=== PATIENT | female | born 1970 | race African-American/Black ===

== ENCOUNTER 2016-12-07 15:18 | Emergency (ER) | payer OTHER ==
[2016-12-07 15:40] VITALS: TEMP 98.2; BMI 27.1
--- NOTE | 2016-12-07 16:27 | PDOC ---
History of Present Illness - History of Present Illness Initial Comments: 12/07/16 16:51 The patient is a 45 year old female with history of HIV CD4 greater 1100, undetectable VL, who presents to the ED complaining of approximately 2 weeks of right lower extremity swelling and paresthesias from the right hip to the right foot with diffuse pain in the right knee. She states she was started on antibiotics a few weeks ago for an abscess in her right groin with resolution of her abscess. She called her PCP about her swelling and paresthesias who sent the patient to the ED to rule out DVT. The patient denies any chest pain or shortness of breath. She denies fever, chills, or diaphoresis. She denies nausea , vomiting, or diarrhea. She denies cigarette smoking, oral contraceptives or devices, or long periods of immobilization. PCP: Dr. Arpita Hadley <Génesis Marshall - Last Filed: 12/07/16 19:38> - General History Source: Patient, Old Records Exam Limitations: No Limitations <James Castro - Last Filed: 12/07/16 19:43> - General Chief Complaint: CVA/TIA Stated Complaint: NUMBNESS IN LEG Time Seen by Provider: 12/07/16 16:08 Past History <Génesis Marshall - Last Filed: 12/07/16 19:38> - Past Medical History Anemia: No Asthma: No Cancer: No Cardiac Disorders: No CVA: No COPD: No CHF: No Dementia: No Diabetes: No GI Disorders: No Disorders: No HTN: No Hypercholesterolemia: No HIV: Yes Liver Disease: No Seizures: No Thyroid Disease: No - Surgical History Gastric Stapling: Yes (colon resection) - Psycho/Social/Smoking Cessation Hx Anxiety: No Suicidal Ideation: No Smoking History: Former smoker Have you smoked in the past 12 months: Yes Number of Cigarettes Smoked Daily: 1 If you are a former smoker, when did you quit?: WEEK BEFORE SURGERY Cigars Per Day: 0 Information on smoking cessation initiated: No Hx Alcohol Use: No Drug/Substance Use Hx: No Substance Use Type: None Hx Substance Use Treatment: No <Jmaes Castro - Last Filed: 12/07/16 19:43> - Past Medical History Allergies/Adverse Reactions: Allergies Allergy/AdvReac Type Severity Reaction Status Date / Time venlafaxine HCl Allergy Intermediate Verified 12/07/16 15:40 [From Effexor XR] Home Medications: Ambulatory Orders Emtricitab/Rilpiviri/Tenof Ala [Odefsey Tablet] 1 each PO DAILY 12/07/16 Review of Systems - Review of Systems Able to Perform ROS?: Yes Comments:: 12/07/16 17:08 GENERAL/CONSTITUTIONAL: No fever or chills. No weakness. HEAD, EYES, EARS, NOSE AND THROAT: No change in vision. No ear pain or discharge. No sore throat CARDIOVASCULAR: No chest pain or shortness of breath. RESPIRATORY: No cough, wheezing, or hemoptysis. GASTROINTESTINAL: No nausea, vomiting, diarrhea or constipation. GENITOURINARY: No dysuria, frequency, or change in urination. MUSCULOSKELETAL: Right lower extremity swelling. Diffuse right knee pain. No neck or back pain. SKIN: Right groin abscess (resolved). No rash NEUROLOGIC: RLE paresthesias. No headache, vertigo, loss of consciousness, or change in strength. ENDOCRINE: No increased thirst. No abnormal weight change. HEMATOLOGIC/LYMPHATIC: No anemia, easy bleeding, or history of blood clots. ALLERGIC/IMMUNOLOGIC: No hives or skin allergy. <Génesis Marshall - Last Filed: 12/07/16 19:38> *Physical Exam - Vital Signs Last Vital Signs Temp Pulse Resp BP Pulse Ox 98.2 F 61 18 109/78 99 12/07/16 15:34 12/07/16 15:34 12/07/16 15:34 12/07/16 15:34 12/07/16 15:34 - Physical Exam Comments: 12/07/16 17:10 GENERAL: Awake, alert, and fully oriented, in no acute distress HEAD: No signs of trauma EYES: PERRLA, EOMI, sclera anicteric, conjunctiva clear ENT: Auricles normal inspection, hearing grossly normal, nares patent, oropharynx clear without exudates. Moist mucosa NECK: Normal ROM, supple, no lymphadenopathy, JVD, or masses LUNGS: Breath sounds equal, clear to auscultation bilaterally. No wheezes, and no crackles HEART: Regular rate and rhythm, normal S1 and S2, no murmurs, rubs or gallops ABDOMEN: Soft, nontender, normoactive bowel sounds. No guarding, no rebound. No masses EXTREMITIES: RLE: Numbness throughout the RLE. Tenderness to palpation of the posterior aspect of the knee. Unilateral nonpitting edema. All other extremities: Normal range of motion, no edema. No clubbing or cyanosis. No cords, erythema, or tenderness NEUROLOGICAL: Cranial nerves II through XII grossly intact. Normal speech, normal gait SKIN: Warm, Dry, normal turgor, no rashes or lesions noted. <Génesis Marshall - Last Filed: 12/07/16 19:38> - Vital Signs Last Vital Signs Temp Pulse Resp BP Pulse Ox 98.2 F 61 18 109/78 99 12/07/16 15:34 12/07/16 15:34 12/07/16 15:34 12/07/16 15:34 12/07/16 15:34 <James Castro - Last Filed: 12/07/16 19:43> ED Treatment Course - RADIOLOGY Radiology Studies Ordered: 12/07/16 19:38 US of the right lower extremity, reviewed and interpreted by [facility]. FINDINGS: The deep veins of the right lower extremity are compressible, patent and augment normally. No evidence of deep vein thrombosis Hypoechoic collection in the popliteal fossa measuring 2.5 x 0.9 x 1.7 cm compatible with a Mathis's cyst THIS DOCUMENT HAS BEEN ELECTRONICALLY SIGNED Adiel Terry MD 12/07/2016 19:27 EST <Génesis Marshall - Last Filed: 12/07/16 19:38> - RADIOLOGY Radiology Studies Ordered: Category Date Time Status DUPLEX VASCUL US-1 LEG [US] Stat Ultrasound 12/07/16 16:18 Ordered <James Castro - Last Filed: 12/07/16 19:43> Medical Decision Making - Medical Decision Making 12/07/16 16:19 A portion of this note was written by my scribe, under my supervision. Vital Signs Temp Pulse Resp BP Pulse Ox 98.2 F 61 18 109/78 99 12/07/16 15:34 12/07/16 15:34 12/07/16 15:34 12/07/16 15:34 12/07/16 15:34 45 yo F c/ hx HIV CD4 greater 1100, undetectable VL p/w R leg tingling and swelling. Reported symptoms persisted for two weeks and pt noted pain in the right posterior knee. Denies injuries. Reports parasthesias diffuse RLE. 2+ radial pulse. Pt reached out to her primary care office (as noted in documents here), and pt was sent to ER. The patient will need r/o DVT, mathis cyst. Will obtain dopplers and reassess. 12/07/16 19:41 Ultrasound reviewed. Mathis's cyst. Will have patient follow up with orthopedics. I discussed the physical exam findings, ancillary test results and final diagnoses with the patient. I answered all of the patient's questions. The patient was satisfied with the care received and felt comfortable with the discharge plan and treatment plan. The patient will call their primary care physician within 24 hours to arrange follow-up and will return to the Emergency Department with any new, persistant or worsening symptoms. <James Castro - Last Filed: 12/07/16 19:43> *DC/Admit/Observation/Transfer - Attestations Scribe Attestion: 12/07/16 17:12 Documentation prepared by Génesis Marshall, acting as biomedical equipment tech for James Castro MD. <Génesis Marshall - Last Filed: 12/07/16 19:38> - Discharge Dispostion Admit: No <James Castro - Last Filed: 12/07/16 19:43> Diagnosis at time of Disposition: Bakers cyst Qualifiers: Laterality: right Qualified Code(s): M71.21 - Synovial cyst of popliteal space [Mathis], right knee - Discharge Dispostion Disposition: HOME Condition at time of disposition: Stable - Referrals Referrals: Arpita Hadley NP [Primary Care Provider] - Jamie Muñoz MD [Staff Physician] - North Preciado MD [Staff Physician] - - Patient Instructions Printed Discharge Instructions: DI for Mathis's Cyst Additional Instructions: Please follow up with your doctor. Make an appointment with an orthopedist if the symptoms are persistent.
[2016-12-07 20:05] VITALS: BP 112/69; PULSE 62
== END 2016-12-07 20:03 | disposition home or self-care (01) ==
LOC: JER 15:18 → SUPCPDRO 15:18 → JER 20:03
DX: M71.21 Synovial cyst of popliteal space [Baker], right knee (principal); Z21 Asymptomatic human immunodeficiency virus [HIV] infection status; Z87.891 Personal history of nicotine dependence
CPT/HCPCS: 93971-TC; 99284-25

== ENCOUNTER 2017-04-11 12:06 | Emergency (ER) | payer OTHER ==
[2017-04-11 12:13] VITALS: BP 121/72; PULSE 88; TEMP 98.3; BMI 26.0
--- NOTE | 2017-04-11 14:16 | PDOC ---
History of Present Illness - General Chief Complaint: Abscess Boil Stated Complaint: ABSCESS ON GROIN AREA (PCP SENT) Time Seen by Provider: 04/11/17 12:49 - History of Present Illness Initial Comments: 04/11/17 14:13 Patient is a 46 year old female with a history of HIV who presents with a right groin abscess. She states that the abscess has been bothering her for over 2 months, however she avoided going to the ED because she was afraid of getting it drained. She has attempted two courses of antibiotics without resolution of the abscess as per her primary care provider. She was being seen by her primary care provider again for the abscess today and was sent to the ED for evaluation. She denies any fevers, chills, or drainage from the abscess. Past History - Past Medical History Allergies/Adverse Reactions: Allergies Allergy/AdvReac Type Severity Reaction Status Date / Time venlafaxine HCl Allergy Intermediate Verified 04/11/17 12:08 [From Effexor XR] Home Medications: Ambulatory Orders Emtricitab/Rilpiviri/Tenof Ala [Odefsey Tablet] 1 each PO DAILY #30 tab Anemia: No Asthma: No Cancer: No Cardiac Disorders: No CVA: No COPD: No CHF: No Dementia: No Diabetes: No GI Disorders: No Disorders: No HTN: No Hypercholesterolemia: No HIV: Yes Liver Disease: No Seizures: No Thyroid Disease: No - Surgical History Gastric Stapling: Yes (colon resection) - Immunization History Immunization Up to Date: Yes - Psycho/Social/Smoking Cessation Hx Anxiety: No Suicidal Ideation: No Smoking History: Never smoked Have you smoked in the past 12 months: Yes Number of Cigarettes Smoked Daily: 1 If you are a former smoker, when did you quit?: WEEK BEFORE SURGERY Cigars Per Day: 0 Information on smoking cessation initiated: No Hx Alcohol Use: No Drug/Substance Use Hx: No Substance Use Type: None Hx Substance Use Treatment: No Review of Systems - Review of Systems Constitutional: No: Chills, Fever Respiratory: No: Cough, Shortness of Breath Cardiac (ROS): No: Chest Pain, Lightheadedness, Palpitations ABD/GI: No: Constipated, Diarrhea, Nausea, Vomiting : No: Dysuria Integumentary: No: Rash Neurological: No: Headache, Numbness, Tingling, Weakness *Physical Exam - Vital Signs Last Vital Signs Temp Pulse Resp BP Pulse Ox 98.3 F 88 18 121/72 98 04/11/17 12:09 04/11/17 12:09 04/11/17 12:09 04/11/17 12:09 04/11/17 12:09 - Physical Exam Comments: 04/11/17 14:43 General Appearance: Nourished. No Apparent Distress HEENT: No Pharyngeal Erythema, Tonsillar Exudate, Tonsillar Erythema Respiratory/Chest: Lungs Clear, Normal Breath Sounds. No Crackles, Rales, Rhonchi, Wheezing Cardiovascular: Regular Rhythm, Regular Rate. No Murmur, Gallop/S3, Gallop/S4 Gastrointestinal/Abdominal: Normal Bowel Sounds, Soft. No Guarding, Rebound, Tenderness Extremity: Normal Capillary Refill, 1cm x 1cm fluctuant mass in the right inguinal region Integumentary: Normal Color, Dry, Warm Neurologic: Fully Oriented, Alert, Normal Mood/Affect, Normal Response Procedures - Incision and Drainage I&D Site: Right: Groin Betadine cleansed: No Anesthesia: 1% Lidocaine Volume(ml): 1 Blade Size: 11 Iodinated Packin/2 in Plain Packing: No Complications: none Dressing: Yes Medical Decision Making - Medical Decision Making 04/11/17 14:45 Patient is a 46 year old female who presents with a right groin abscess. Given her physical examination, the lesion appears to be a abscess without surround erythema or cellulitis. We do not believe that she requires lab work at this time. Bedside US demonstrates a fluid pocket that appears to be an abscess. We will I&D and pack the wound. 04/11/17 14:50 Abscess was successfully I&D with packing. We dressed the wound and informed the patient that she needs to come back to the ED to have a wound evaluation and repacking if needed. We do not believe that she needs antibiotic treatment at this time. The patient voiced understanding and is agreeable with the plan. We feel comfortable discharging the patient home. *DC/Admit/Observation/Transfer Diagnosis at time of Disposition: Abscess of right groin - Discharge Dispostion Disposition: HOME Condition at time of disposition: Improved Admit: No - Referrals Referrals: Arpita Hadley, UROLOGIST MD [Primary Care Provider] - - Patient Instructions Printed Discharge Instructions: DI for Incision and Drainage of a Skin Abscess Additional Instructions: Please return to the ER if you experience concerning or worsening symptoms such as fevers, or chills. Please keep the wound clean and do not pull out the packing. The packing may fall out on it's own which is to be expected. Please return to the ER in 2 days to have your wound re-evaluated and possibly repacked. Please follow up with your primary care provider to discuss your ER visit. - Attestations Physician Attestion: 04/11/17 14:57 I, Dr. Rasheed Ramirez, attest that this document has been prepared under my direction and personally reviewed by me in its entirety. I further attest, that it accurately reflects all work, treatment, procedures and medical decision -making performed by me.
--- NOTE | 2017-04-11 14:57 | PDOC ---
Attending Attestation - Resident Resident Name: AshleyRasheed - ED Attending Attestation I have performed the following: I have examined & evaluated the patient, The case was reviewed & discussed with the resident, I agree w/resident's findings & plan, Exceptions are as noted - HPI HPI: 04/11/17 14:53 46-year-old female with history of HIV with CD4 count of 1200 and undetectable viral load presents with several months of right inguinal abscess approximately one by one cm. Denies fevers or chills. Patient came to the ED at the prompting of her primary care physician. - Physicial Exam PE: 04/11/17 14:54 GENERAL: Awake, alert, and fully oriented, in no acute distress. HEAD: No signs of trauma EYES: PERRLA, EOMI, sclera anicteric, conjunctiva clear ENT: Auricles normal inspection, hearing grossly normal, nares patent, oropharynx clear without exudates. NECK: Normal ROM, supple, no lymphadenopathy, JVD, or masses LUNGS: Breath sounds equal, clear to auscultation bilaterally. No wheezes, and no crackles HEART: Regular rate and rhythm, normal S1 and S2, no murmurs, rubs or gallops ABDOMEN: Soft, nontender, normoactive bowel sounds. No guarding, no rebound. No masses 1x1 cm fluctuance with NO erythema or drainage Right inguinal EXTREMITIES: Normal range of motion, no edema. No clubbing or cyanosis. No cords, erythema, or tenderness NEUROLOGICAL: Cranial nerves II through XII grossly intact. Normal speech, normal gait SKIN: Warm, Dry, normal turgor, no rashes or lesions noted. - Medical Decision Making 04/11/17 14:56 Vital Signs Temp Pulse Resp BP Pulse Ox 98.3 F 88 18 121/72 98 04/11/17 12:09 04/11/17 12:09 04/11/17 12:09 04/11/17 12:09 04/11/17 12:09 The patient is nontoxic appearing. We'll perform incision and drainage. Packing and return to the ER 2 days.
== END 2017-04-11 15:15 | disposition home or self-care (01) ==
LOC: JER 12:06
PROC: 0H9AXZZ Drainage of Inguinal Skin, External Approach (ICD-10-PCS; principal; 2017-04-11)
DX: L02.214 Cutaneous abscess of groin (principal); Z21 Asymptomatic human immunodeficiency virus [HIV] infection status; Z88.1 Allergy status to other antibiotic agents
CPT/HCPCS: 99282-25

== ENCOUNTER 2017-04-13 09:26 | Emergency (ER) | payer OTHER ==
[2017-04-13 09:49] VITALS: BP 107/71; PULSE 73; TEMP 98.1; BMI 26.0
--- NOTE | 2017-04-13 10:27 | PDOC ---
Suture Removal/Wound Check HPI - History of Present Illness Chief Complaint: Revisit,Wound Recheck Stated Complaint: FOLLOW UP Time Seen by Provider: 04/13/17 10:11 History Source: Yes: Patient Exam Limitations: Yes: No Limitations Treated at: [facility] Date of Last ED visit: 04/11/17 - Previous ED Treatment Type of procedure performed on last visit: Yes: I&D of Abscess Tetanus Immunization: Yes: Up to Date Antibiotics Prescribed: No Past History - Past Medical History Allergies/Adverse Reactions: Allergies venlafaxine HCl [From Effexor XR] Allergy (Intermediate, Verified 04/13/17 09:45 ) Home Medications: Ambulatory Orders Emtricitab/Rilpiviri/Tenof Ala [Odefsey Tablet] 1 each PO DAILY #30 tab Cephalexin [Keflex] 500 mg PO QID #40 capsule 04/13/17 General: Yes: other (HIV) - Immunization History Immunizations Up to Date: Yes - Social History Smoking Status: Never smoked Number of Ciarettes Per Day: 1 Cigars Per Day: 0 Suture Removal/Wound Check PE - Physical Exam Laceration/Wound Check Symptoms: reports: None Current Severity Level: None Maximum Severity Level: None Pain Localization: None *Review of Systems - Review of Systems Constitutional: No: Symptoms Reported Integumentary: Yes: Other (painful abscess with no surrounding erythema or cellulitis to right groin.) Neurological: No: Symptoms reported Hematologic/Lymphatic: No: Symptoms Reported, Lymph Node Abnormalities, Swollen Glands All Other Systems: Reviewed and Negative Medical Decision Making - Medical Decision Making 04/13/17 10:28 A/P: Patient here for evaluation of I&D performed on 04/11/2017 to right groin, appears to be hair follicle, there is no surrounding erythema or cellulitis patient is concerned because she is HIV positive and immunocompromised that area will not heal, wound appears to be healing well there is no evidence of cellulitis as previously stated I will give patient prescription for Keflex in case area is not improving in the next 2 days to follow up with dermatology. Packing was removed, patient states it fell out prior to arrival. 04/13/17 10:32 *DC/Admit/Observation/Transfer Diagnosis at time of Disposition: Wound check, abscess - Discharge Dispostion Disposition: HOME Condition at time of disposition: Good Admit: No - Prescriptions Prescriptions: Cephalexin [Keflex] 500 mg PO QID #40 capsule - Referrals Referrals: Arpita Hadley [employer] SUPPORT ADMINISTRATOR [Primary Care Provider] - - Patient Instructions Printed Discharge Instructions: DI for Wound Infection Additional Instructions: Please monitor area for any increased redness swelling or signs of infection, if wound appears not to be improving in the next 48 hours may start antibiotics and follow up with dermatology if any increased redness swelling or signs of infection including fever please return immediately to ER.
== END 2017-04-13 10:41 | disposition home or self-care (01) ==
LOC: JERFT 09:26
DX: Z48.01 Encounter for change or removal of surgical wound dressing (principal); L02.214 Cutaneous abscess of groin; Z21 Asymptomatic human immunodeficiency virus [HIV] infection status
CPT/HCPCS: 99281-25

== ENCOUNTER → 2025-01-05 | Day surgery (SDC) | payer OTHER | END | disposition home or self-care (01) | LOC: JRADIR 09:38 | PROVIDERS: ATTEND Registered Nurse Medical-Surgical | PROC: 0GBG3ZX Excision of Left Thyroid Gland Lobe, Percutaneous Approach, Diagnostic (ICD-10-PCS; principal; 2025-01-05) | DX: E04.1 Nontoxic single thyroid nodule (principal) | CPT/HCPCS: 10005; 76942; 88173; 88305-TC ==